=== PATIENT | male | born 1960 | race Hispanic/Latino ===

== ENCOUNTER 2020-04-10 20:47 | Emergency (ER) | payer BC, OTHER ==
--- NOTE | 2020-04-10 21:18 | EDM.PDOC ---
ED HPI GENERAL MEDICAL PROBLEM - General Chief Complaint: Abdominal Pain Stated Complaint: DIAHREA YESTERDAY/JUST DOESN'T FEEL GOOD Time Seen by Provider: 04/10/20 21:08 - History of Present Illness INITIAL COMMENTS - FREE TEXT/NARRATIVE: 59-year-old male presents the emergency room generally not feeling well. He had some loose stools yesterday and does not feel well today. He has some mild stomach upset but just is not himself. The patient usually drinks 1 or 2 glasses of tequila at night however over the last couple of days he drank 2 bottles. He denies vomiting may have some nausea. Denies specific pain anywhere just does not feel well. He is not coughing does not have any upper airway congestion has had a couple of loose stools last 1 yesterday. Patient denies ever trying to quit drinking in the past. Patient has colitis by history. It does not sound like this is ever been worked up however. He is never had it he colonoscopy. And he is never been told what type of colitis it is. Abdomen Pain Score (Numeric/FACES): 8 - Related Data Allergies Allergy/AdvReac Type Severity Reaction Status Date / Time Sitlpfv-Vch-Dyo Reductase Allergy Other Verified 04/10/20 21:43 Inhibitor Home Meds: Home Meds Aspirin [Aspirin EC] 1 tab PO DAILY 04/10/20 [History] Ondansetron [Zofran ODT] 4 mg PO Q6H PRN #5 tab.dis #2 Samples 04/10/20 [Rx] ED ROS GENERAL - Review of Systems Review Of Systems: See Below Constitutional: Reports: No Symptoms HEENT: Reports: No Symptoms Respiratory: Reports: No Symptoms Cardiovascular: Reports: No Symptoms GI/Abdominal: Reports: Diarrhea, Nausea, Other (No loss of taste or smell). Denies: Black Stool, Bloody Stool : Reports: No Symptoms Musculoskeletal: Reports: No Symptoms Skin: Reports: No Symptoms Neurological: Reports: No Symptoms ED EXAM, GI/ABD - Physical Exam Exam: See Below Exam Limited By: No Limitations General Appearance: Alert, No Apparent Distress Eyes: Bilateral: Normal Appearance Ears: Normal External Exam, Normal Canal, Hearing Grossly Normal, Normal TMs Nose: Normal Inspection, Normal Mucosa, No Blood Throat/Mouth: Normal Inspection, Normal Lips, Normal Gums, Normal Oropharynx, Normal Voice, No Airway Compromise Head: Atraumatic, Normocephalic Neck: Normal Inspection, Supple, Non-Tender, Full Range of Motion. No: Lymphadenopathy (L), Lymphadenopathy (R) Respiratory/Chest: No Respiratory Distress, Lungs Clear, Normal Breath Sounds Cardiovascular: Regular Rate, Rhythm, No Edema, No Murmur GI/Abdominal Exam: Normal Bowel Sounds, Soft, Tender (Mild left lower quadrant tenderness.) Back Exam: Normal Inspection. No: CVA Tenderness (L), CVA Tenderness (R) Extremities: Normal Inspection, No Pedal Edema Neurological: Alert, Oriented, Normal Cognition Course - Vital Signs Last Recorded V/S: Last Vital Signs Temp 37.0 C 04/10/20 21: Pulse 127 H 04/10/20 21:01 Resp 16 04/10/20 21: BP 188/90 H 04/10/20 21:01 Pulse Ox 94 L 04/10/20 21:01 - Orders/Labs/Meds Labs: Laboratory Tests 04/10/20 04/10/20 04/10/20 Range/Units 21:15 21:15 21:49 WBC 6.67 (4.23-9.07) K/mm3 RBC 5.29 (4.63-6.08) M/mm3 Hgb 16.4 (13.7-17.5) gm/dl Hct 46.3 (40.1-51.0) % MCV 87.5 (79.0-92.2) fl MCH 31.0 (25.7-32.2) pg MCHC 35.4 (32.2-35.5) g/dl RDW Std Deviation 44.2 H (35.1-43.9) fL Plt Count 381 H (163-337) K/mm3 MPV 9.7 (9.4-12.3) fl Neut % (Auto) 67.7 (34.0-67.9) % Lymph % (Auto) 22.2 (21.8-53.1) % [place] % (Auto) 9.1 (5.3-12.2) % Eos % (Auto) 0.6 L (0.8-7.0) Baso % (Auto) 0.3 (0.1-1.2) % Neut # (Auto) 4.51 (1.78-5.38) K/mm3 Lymph # (Auto) 1.48 (1.32-3.57) K/mm3 [place] # (Auto) 0.61 (0.30-0.82) K/mm3 Eos # (Auto) 0.04 (0.04-0.54) K/mm3 Baso # (Auto) 0.02 (0.01-0.08) K/mm3 Sodium 138 (136-145) mEq/L Potassium 3.4 L (3.5-5.1) mEq/L Chloride 100 (98-107) mEq/L Carbon Dioxide 20 L (21-32) mEq/L Anion Gap 21.4 H (5-15) BUN 12 (7-18) mg/dL Creatinine 1.2 (0.7-1.3) mg/dL Est Cr Clr Drug Dosing 59.07 mL/min Estimated GFR (MDRD) > 60 (>60) mL/min BUN/Creatinine Ratio 10.0 L (14-18) Glucose 109 H (74-106) mg/dL Calcium 8.9 (8.5-10.1) mg/dL Total Bilirubin 0.9 (0.2-1.0) mg/dL GGT 92 H (15-85) U/L AST 33 (15-37) U/L ALT 38 (16-63) U/L Alkaline Phosphatase 68 (46-116) U/L Total Protein 7.8 (6.4-8.2) g/dl Albumin 4.2 (3.4-5.0) g/dl Globulin 3.6 gm/dL Albumin/Globulin Ratio 1.2 (1-2) Urine Color Yellow (Yellow) Urine Appearance Clear (Clear) Urine pH 6.5 (5.0-8.0) Ur Specific [place] > or = 1.030 (1.005-1.030) Urine Protein Trace H (Negative) Urine Glucose (UA) Negative (Negative) Urine Ketones Negative (Negative) Urine Occult Blood Trace-lysed H (Negative) Urine Nitrite Negative (Negative) Urine Bilirubin Negative (Negative) Urine Urobilinogen 0.2 (0.2-1.0) Ur Leukocyte Esterase Negative (Negative) Urine RBC 0-5 (0-5) /hpf Urine WBC 0-5 (0-5) /hpf Ur Squamous Epith Cells 0-5 (0-5) /hpf Urine Bacteria Few (FEW) /hpf Urine Mucus Moderate H (FEW) /hpf Ethyl Alcohol 0.05 (0.00) gm% Meds: Medications Discontinued Medications Generic Name Dose Route Start Last Admin Trade Name Ria PRN Reason Stop Dose Admin Lactated Ringer's 1,000 mls @ 999 mls/hr 04/10/20 21:33 04/10/20 21:43 Ringers, Lactated IV 04/10/20 22:33 999 mls/hr .BOLUS ONE Administration Ondansetron HCl 4 mg 04/10/20 21:33 04/10/20 21:43 Zofran IVPUSH 04/10/20 21:34 4 mg ONETIME ONE Administration - Re-Assessments/Exams Free Text/Narrative Re-Assessment/Exam: 04/10/20 22:48 Patient is feeling much better and would like to go home. We will give him 40 mEq of oral potassium before he leaves. We will give him some Zofran as an outpatient and I have advised him strongly to quit drinking. Departure - Departure Time of Disposition: 22:50 Disposition: Home, Self-Care 01 Clinical Impression: Alcoholism /alcohol abuse - Discharge Information Referrals: PCP,None [Primary Care Provider] - Forms: ED Department Discharge Additional Instructions: Return to the emergency room with any questions problems or worsening symptoms. Clear liquid diet for the next 24 hours then slowly advance as tolerated. Quit drinking! You have been given a prescription for Zofran this will help with the nausea use as needed. direct support worker some magnesium oxide 400 mg tablets. Take 1 daily. It will help. Sepsis Event Note (ED) - Evaluation Sepsis Screening Result: No Definite Risk - Focused Exam Vital Signs: Vital Signs Temp Pulse Resp BP Pulse Ox 04/10/20 21:01 37.0 C 127 H 16 188/90 H 94 L
[2020-04-10] MEDS ORDERED: Ondansetron 4 MG/2 ML SDV IVPUSH ONE (21:33)
[2020-04-10] MEDS ORDERED: Lactated Ringers 1,000 ML IV ONE (21:33)
[2020-04-10] MEDS ORDERED: Ondansetron 4 MG Tab.DIS PO ONE (22:49)
[2020-04-10] MEDS ORDERED: Potassium Chloride 20 MEQ Tab.ER PO ONE (22:49)
== END 2020-04-10 23:05 | disposition home or self-care (01) ==
LOC: JD.ED 20:47
DX: F10.20 Alcohol dependence, uncomplicated (principal); Y90.2 Blood alcohol level of 40-59 mg/100 ml; Z88.8 Allergy status to other drugs, medicaments and biological substances; Z79.82 Long term (current) use of aspirin
CPT/HCPCS: 36415; 80053; 80307; 81001; 82977; 85025; 96374; 99284; A9270; J2405; J7120; 99283

== ENCOUNTER 2021-05-20 11:59 | Emergency (ER) | payer OTHER ==
[2021-05-20] MEDS ORDERED: Sodium Chloride 0.9% 10 ML Syringe FLUSH PRN (12:50)
--- NOTE | 2021-05-20 13:19 | CT ---
Head CT Technique: Multiple axial sections through the brain were obtained. Intravenous contrast was not utilized. Reconstructed coronal and sagittal images were obtained. Comparison: No prior intracranial imaging is available. Findings: Ventricles along with basal cisterns and sulci over the convexities are slightly prominent. No abnormal parenchymal densities are seen. No evidence of intracranial hemorrhage is seen. No midline shift or mass-effect is seen. Bone window settings were reviewed. No acute osseous abnormality is seen. Visualized mastoid sinuses and paranasal sinuses show nothing acute. Impression: 1. Noncontrast head CT study shows nothing acute. Diagnostic code #2
--- NOTE | 2021-05-20 15:28 | MR ---
MRI brain Technique: T1 sagittal; T2, T2 FLAIR, T1 and diffusion axial; T1 FLAIR coronal images were obtained. Comparison: Prior head CT study performed earlier on the same day (12:49 PM). Findings: Ventricles along with basal cisterns and sulci over the convexities are slightly prominent. There are no abnormal diffusion areas being seen. No abnormal signal is seen within the brain parenchyma. No midline shift or mass-effect is seen. Normal signal void is seen within the major cerebral arteries within the skull base. Impression: 1. Nothing acute is seen on MRI study of the brain. Diagnostic code #1
--- NOTE | 2021-05-20 15:29 | EDM.PDOC ---
ED HPI GENERAL MEDICAL PROBLEM - General Chief Complaint: General Stated Complaint: [facility] Time Seen by Provider: 05/20/21 12:25 Source of Information: Reports: Patient, EMS History Limitations: Reports: Language Barrier - History of Present Illness INITIAL COMMENTS - FREE TEXT/NARRATIVE: The patient presents by [facility] for amnesia and not feeling well. He was at work today and his coworkers say he was using a chain saw. He stopped it and set it down. They asked him what was wrong and he said he does not feel right. He then could not remember the day. His last time known well was 12pm. He speaks very little [place]. I got a product marketing manager and she helped me communicate. He has no headache, fever, chills, cough, chest pain, shortness of breath, abdominal pain, nausea, vomiting, numbness or weakness. He has never had anything like this before. He knew who he was and kne he was in a hospital but not sure which one. He did not know the day or month. He has no medical problems and he is on no medications. Onset: Sudden Duration: Hour(s): (last time known well was 12pm) Severity: Moderate Improves with: Reports: None Worsens with: Reports: None Associated Symptoms: Reports: No Other Symptoms - Related Data Allergies Allergy/AdvReac Type Severity Reaction Status Date / Time Femwwrr-HPS-SvN Reductase Allergy Other Verified 05/20/21 12:32 Inhibitor [Qmkowxu-Zfx-Lva Reductase Inhibitor] Home Meds: Home Meds Tamsulosin [Flomax] 05/20/21 [History] atorvaSTATin [Lipitor] 05/20/21 [History] Past Medical History - Past Health History Medical/Surgical History: Denies Medical/Surgical History Cardiovascular History: Reports: High Cholesterol Genitourinary History: Reports: Prostate Disorder Social & Family History - Tobacco Use Tobacco Use Status *Q: Unknown Ever Used Tobacco - Caffeine Use Caffeine Use: Reports: Coffee ED ROS GENERAL - Review of Systems Review Of Systems: See Below Constitutional: Reports: No Symptoms HEENT: Reports: No Symptoms Respiratory: Reports: No Symptoms Cardiovascular: Reports: No Symptoms Endocrine: Reports: No Symptoms GI/Abdominal: Reports: No Symptoms : Reports: No Symptoms Musculoskeletal: Reports: No Symptoms Skin: Reports: No Symptoms Neurological: Reports: Other (amnesia) ED EXAM, GENERAL - Physical Exam Exam: See Below Exam Limited By: No Limitations General Appearance: Alert, No Apparent Distress Ears: Normal External Exam Nose: Normal Inspection Head: Atraumatic, Normocephalic Neck: Normal Inspection Respiratory/Chest: No Respiratory Distress, Lungs Clear, Normal Breath Sounds Cardiovascular: Regular Rate, Rhythm, No Edema, No Murmur GI/Abdominal: Soft, Non-Tender, No Organomegaly, No Mass Back Exam: Normal Inspection Extremities: Normal Inspection Neurological: Alert, Oriented, No Motor/Sensory Deficits #1 Interpretation EKG Date: 05/20/21 Time: 12:32 Rhythm: NSR Rate (Beats/Min): 95 [place]: LAD-Left [place] Deviation P-Wave: Present QRS: Normal ST-T: Normal QT: Normal Course - Vital Signs Last Recorded V/S: Last Vital Signs Temp 98.0 F 05/20/21 12:24 Pulse 104 H 05/20/21 12:24 Resp 18 05/20/21 12:24 BP 153/82 H 05/20/21 12:24 Pulse Ox 96 05/20/21 12:24 - Orders/Labs/Meds Orders: Active Orders 24 hr Category Date Time Status Cardiac Monitoring [RC] . DIRECTED Care 05/20/21 12:50 Active Peripheral IV Care [RC] . DIRECTED Care 05/20/21 12:51 Active Sodium Chloride 0.9% [Saline Flush] Med 05/20/21 12:50 Active 10 ml FLUSH ASDIRECTED PRN Peripheral IV Insertion Adult [OM.PC] Stat Oth 05/20/21 12:50 Ordered EKG 12 Lead [EK] Stat Ther 05/20/21 12:33 Ordered Medication Orders Sodium Chloride (Sodium Chloride 0.9% 10 Ml Syringe) 10 ml FLUSH ASDIRECTED PRN PRN Reason: Keep Vein Open Last Admin: 05/20/21 12:59 Dose: 10 ml Documented by: MICHAEL Labs: Laboratory Tests 05/20/21 05/20/21 05/20/21 Range/Units 12:41 12:43 12:43 WBC 9.73 H (4.23-9.07) K/mm3 RBC 4.97 (4.63-6.08) M/mm3 Hgb 14.9 D (13.7-17.5) gm/dl Hct 44.1 (40.1-51.0) % MCV 88.7 (79.0-92.2) fl MCH 30.0 (25.7-32.2) pg MCHC 33.8 (32.2-35.5) g/dl RDW Std Deviation 48.2 H (35.1-43.9) fL Plt Count 278 D (163-337) K/mm3 MPV 9.9 (9.4-12.3) fl Neut % (Auto) 72.5 H (34.0-67.9) % Lymph % (Auto) 19.6 L (21.8-53.1) % [place] % (Auto) 6.9 (5.3-12.2) % Eos % (Auto) 0.7 L (0.8-7.0) Baso % (Auto) 0.1 (0.1-1.2) % Neut # (Auto) 7.05 H (1.78-5.38) K/mm3 Lymph # (Auto) 1.91 (1.32-3.57) K/mm3 [place] # (Auto) 0.67 (0.30-0.82) K/mm3 Eos # (Auto) 0.07 (0.04-0.54) K/mm3 Baso # (Auto) 0.01 (0.01-0.08) K/mm3 PT (9.7-12.0) SECONDS INR APTT (21.7-31.4) SECONDS D-Dimer, Quantitative (0.19-0.50) mg/L Sodium 142 (136-145) mEq/L Potassium 3.5 (3.5-5.1) mEq/L Chloride 106 (98-107) mEq/L Carbon Dioxide 24 (21-32) mEq/L Anion Gap 15.5 H (5-15) BUN 17 (7-18) mg/dL Creatinine 1.1 (0.7-1.3) mg/dL Est Cr Clr Drug Dosing TNP Estimated GFR (MDRD) > 60 (>60) mL/min BUN/Creatinine Ratio 15.5 (14-18) Glucose 107 H (70-99) mg/dL POC Glucose 102 H (70-99) mg/dL Calcium 8.7 (8.5-10.1) mg/dL Magnesium 1.9 (1.8-2.4) mg/dL Total Bilirubin 0.5 (0.2-1.0) mg/dL AST 15 (15-37) U/L ALT 40 (16-63) U/L Alkaline Phosphatase 55 (46-116) U/L Troponin I < 0.017 (0.00-0.056) ng/mL C-Reactive Protein <0.2 (<1.0) mg/dL Total Protein 7.2 (6.4-8.2) g/dl Albumin 3.7 (3.4-5.0) g/dl Globulin 3.5 gm/dL Albumin/Globulin Ratio 1.1 (1-2) Urine Color (Yellow) Urine Appearance (Clear) Urine pH (5.0-8.0) Ur Specific [place] (1.005-1.030) Urine Protein (Negative) Urine Glucose (UA) (Negative) Urine Ketones (Negative) Urine Occult Blood (Negative) Urine Nitrite (Negative) Urine Bilirubin (Negative) Urine Urobilinogen (0.2-1.0) Ur Leukocyte Esterase (Negative) Urine RBC (0-5) /hpf Urine WBC (0-5) /hpf Ur Epithelial Cells (0-5) /hpf Urine Bacteria (FEW) /hpf Urine Mucus (FEW) /hpf Urine Opiates Screen (EOQHBJ=914) Ur Buprenorphine Scrn (CUTOFF=10) Ur Oxycodone Screen (HWW7UD=195) Urine Methadone Screen (AFM7CP=717) Ur Propoxyphene Screen (FXZOGC=427) Ur Barbiturates Screen (ROZQFO=573) Ur Tricyclics Screen (ETPATU=662) Ur Phencyclidine Scrn (CUTOFF=25) Ur Amphetamine Screen (OLVTVW=650) U Methamphetamines Scrn (OSLKTG=901) U Benzodiazepines Scrn (BYIBLN=898) U Cocaine Metab Screen (GTQWDF=948) U Marijuana (THC) Screen (CUTOFF=50) Ethyl Alcohol 0.00 (0.00) gm% SARS-CoV-2 RNA (DELFINA) (NEGATIVE) 05/20/21 05/20/21 05/20/21 Range/Units 12:57 12:57 13:14 WBC (4.23-9.07) K/mm3 RBC (4.63-6.08) M/mm3 Hgb (13.7-17.5) gm/dl Hct (40.1-51.0) % MCV (79.0-92.2) fl MCH (25.7-32.2) pg MCHC (32.2-35.5) g/dl RDW Std Deviation (35.1-43.9) fL Plt Count (163-337) K/mm3 MPV (9.4-12.3) fl Neut % (Auto) (34.0-67.9) % Lymph % (Auto) (21.8-53.1) % [place] % (Auto) (5.3-12.2) % Eos % (Auto) (0.8-7.0) Baso % (Auto) (0.1-1.2) % Neut # (Auto) (1.78-5.38) K/mm3 Lymph # (Auto) (1.32-3.57) K/mm3 [place] # (Auto) (0.30-0.82) K/mm3 Eos # (Auto) (0.04-0.54) K/mm3 Baso # (Auto) (0.01-0.08) K/mm3 PT (9.7-12.0) SECONDS INR APTT (21.7-31.4) SECONDS D-Dimer, Quantitative (0.19-0.50) mg/L Sodium (136-145) mEq/L Potassium (3.5-5.1) mEq/L Chloride (98-107) mEq/L Carbon Dioxide (21-32) mEq/L Anion Gap (5-15) BUN (7-18) mg/dL Creatinine (0.7-1.3) mg/dL Est Cr Clr Drug Dosing Estimated GFR (MDRD) (>60) mL/min BUN/Creatinine Ratio (14-18) Glucose (70-99) mg/dL POC Glucose (70-99) mg/dL Calcium (8.5-10.1) mg/dL Magnesium (1.8-2.4) mg/dL Total Bilirubin (0.2-1.0) mg/dL AST (15-37) U/L ALT (16-63) U/L Alkaline Phosphatase (46-116) U/L Troponin I (0.00-0.056) ng/mL C-Reactive Protein (<1.0) mg/dL Total Protein (6.4-8.2) g/dl Albumin (3.4-5.0) g/dl Globulin gm/dL Albumin/Globulin Ratio (1-2) Urine Color Light yellow (Yellow) Urine Appearance Clear (Clear) Urine pH 6.5 (5.0-8.0) Ur Specific [place] 1.010 (1.005-1.030) Urine Protein Negative (Negative) Urine Glucose (UA) Negative (Negative) Urine Ketones Negative (Negative) Urine Occult Blood Negative (Negative) Urine Nitrite Negative (Negative) Urine Bilirubin Negative (Negative) Urine Urobilinogen 0.2 (0.2-1.0) Ur Leukocyte Esterase Negative (Negative) Urine RBC 0-5 (0-5) /hpf Urine WBC 0-5 (0-5) /hpf Ur Epithelial Cells 0-5 (0-5) /hpf Urine Bacteria Not seen (FEW) /hpf Urine Mucus Not seen (FEW) /hpf Urine Opiates Screen Negative (TGPYTW=378) Ur Buprenorphine Scrn Negative (CUTOFF=10) Ur Oxycodone Screen Negative (VFZ6WX=233) Urine Methadone Screen Negative (DNO6SV=776) Ur Propoxyphene Screen Negative (LZANCZ=812) Ur Barbiturates Screen Negative (KQULVL=070) Ur Tricyclics Screen Negative (NFFEME=128) Ur Phencyclidine Scrn Negative (CUTOFF=25) Ur Amphetamine Screen Negative (KUOMLP=578) U Methamphetamines Scrn Negative (JKUHDX=606) U Benzodiazepines Scrn Negative (VZFGHM=383) U Cocaine Metab Screen Negative (ZNFDCJ=102) U Marijuana (THC) Screen Negative (CUTOFF=50) Ethyl Alcohol (0.00) gm% SARS-CoV-2 RNA (DELFINA) Negative (NEGATIVE) 05/20/21 Range/Units 13:19 WBC (4.23-9.07) K/mm3 RBC (4.63-6.08) M/mm3 Hgb (13.7-17.5) gm/dl Hct (40.1-51.0) % MCV (79.0-92.2) fl MCH (25.7-32.2) pg MCHC (32.2-35.5) g/dl RDW Std Deviation (35.1-43.9) fL Plt Count (163-337) K/mm3 MPV (9.4-12.3) fl Neut % (Auto) (34.0-67.9) % Lymph % (Auto) (21.8-53.1) % [place] % (Auto) (5.3-12.2) % Eos % (Auto) (0.8-7.0) Baso % (Auto) (0.1-1.2) % Neut # (Auto) (1.78-5.38) K/mm3 Lymph # (Auto) (1.32-3.57) K/mm3 [place] # (Auto) (0.30-0.82) K/mm3 Eos # (Auto) (0.04-0.54) K/mm3 Baso # (Auto) (0.01-0.08) K/mm3 PT 10.2 (9.7-12.0) SECONDS INR < 0.93 APTT 24.8 (21.7-31.4) SECONDS D-Dimer, Quantitative 0.21 (0.19-0.50) mg/L Sodium (136-145) mEq/L Potassium (3.5-5.1) mEq/L Chloride (98-107) mEq/L Carbon Dioxide (21-32) mEq/L Anion Gap (5-15) BUN (7-18) mg/dL Creatinine (0.7-1.3) mg/dL Est Cr Clr Drug Dosing Estimated GFR (MDRD) (>60) mL/min BUN/Creatinine Ratio (14-18) Glucose (70-99) mg/dL POC Glucose (70-99) mg/dL Calcium (8.5-10.1) mg/dL Magnesium (1.8-2.4) mg/dL Total Bilirubin (0.2-1.0) mg/dL AST (15-37) U/L ALT (16-63) U/L Alkaline Phosphatase (46-116) U/L Troponin I (0.00-0.056) ng/mL C-Reactive Protein (<1.0) mg/dL Total Protein (6.4-8.2) g/dl Albumin (3.4-5.0) g/dl Globulin gm/dL Albumin/Globulin Ratio (1-2) Urine Color (Yellow) Urine Appearance (Clear) Urine pH (5.0-8.0) Ur Specific [place] (1.005-1.030) Urine Protein (Negative) Urine Glucose (UA) (Negative) Urine Ketones (Negative) Urine Occult Blood (Negative) Urine Nitrite (Negative) Urine Bilirubin (Negative) Urine Urobilinogen (0.2-1.0) Ur Leukocyte Esterase (Negative) Urine RBC (0-5) /hpf Urine WBC (0-5) /hpf Ur Epithelial Cells (0-5) /hpf Urine Bacteria (FEW) /hpf Urine Mucus (FEW) /hpf Urine Opiates Screen (YRBNRH=005) Ur Buprenorphine Scrn (CUTOFF=10) Ur Oxycodone Screen (NQU9VU=282) Urine Methadone Screen (FFM2TC=859) Ur Propoxyphene Screen (FDVUJA=580) Ur Barbiturates Screen (GGUCDD=699) Ur Tricyclics Screen (VHHQAQ=652) Ur Phencyclidine Scrn (CUTOFF=25) Ur Amphetamine Screen (LAPWTE=072) U Methamphetamines Scrn (YEWSRF=008) U Benzodiazepines Scrn (PXGKOO=593) U Cocaine Metab Screen (IUEQSY=105) U Marijuana (THC) Screen (CUTOFF=50) Ethyl Alcohol (0.00) gm% SARS-CoV-2 RNA (DELFINA) (NEGATIVE) Meds: Medications Generic Name Dose Route Start Last Admin Trade Name Freq PRN Reason Stop Dose Admin Sodium Chloride 10 ml 05/20/21 12:50 05/20/21 12:59 Sodium Chloride 0.9% 10 Ml Syringe FLUSH 10 ml ASDIRECTED PRN Administration Keep Vein Open - Re-Assessments/Exams Free Text/Narrative Re-Assessment/Exam: 05/20/21 15:31 I ordered an IV saline lock, EKG, CT of his head and labs. His EKG shows a NSR with no acute changes. His CT shows noncontrast head CT study shows nothing acute. His WBC was slightly elevated at 9.73. His D-dimer, PT and PTT were normal. His CMP looks good. His troponin was negative. His CRP was normal. His UA shows no UTI. His urine drug screen was negative. His ETOH was 0. He was COVID negative. I was able to get him in for an MRI and MRA of his brain. I am waiting for the results now. 05/20/21 16:06 The MRA of his brain shows right posterior cerebral artery arises anteriorly which is a normal variant. Arteries seen on this exam show no focal stenosis, occlusion or findings of aneurysm. The MRI of his brain shows nothing acute. He is doing much better. He is remembering more. He did not have a stroke. He has transient global amnesia. I will get him on an aspirin and have him follow up with his provider. He is seeing his doctor on the 29 of May. Departure - Departure Time of Disposition: 16:10 Disposition: Home, Self-Care 01 Condition: Good Clinical Impression: Transient global amnesia - Discharge Information *PRESCRIPTION DRUG MONITORING PROGRAM REVIEWED*: Not Applicable *COPY OF PRESCRIPTION DRUG MONITORING REPORT IN PATIENT CHARLY: Not Applicable Referrals: PCP,None [Primary Care Provider] - Forms: ED Department Discharge Additional Instructions: Follow up with your provider as scheduled. Take an aspirin daily. Please return if you are worse. Sepsis Event Note (ED) - Evaluation Sepsis Screening Result: No Definite Risk - Focused Exam Vital Signs: Vital Signs Temp Pulse Resp BP Pulse Ox 05/20/21 12:24 98.0 F 104 H 18 153/82 H 96 - My Orders Last 24 Hours: My Active Orders 05/20/21 12:33 EKG 12 Lead [EK] Stat 05/20/21 12:50 Cardiac Monitoring [RC] . DIRECTED Sodium Chloride 0.9% [Saline Flush] 10 ml FLUSH ASDIRECTED PRN Peripheral IV Insertion Adult [OM.PC] Stat 05/20/21 12:51 Peripheral IV Care [RC] . DIRECTED - Assessment/Plan Last 24 Hours: My Active Orders 05/20/21 12:33 EKG 12 Lead [EK] Stat 05/20/21 12:50 Cardiac Monitoring [RC] . DIRECTED Sodium Chloride 0.9% [Saline Flush] 10 ml FLUSH ASDIRECTED PRN Peripheral IV Insertion Adult [OM.PC] Stat 05/20/21 12:51 Peripheral IV Care [RC] . DIRECTED
--- NOTE | 2021-05-20 15:36 | MR ---
MRI angiogram of the brain Technique: Multiple axial sections were obtained during MR angiogram study centered to the [place] of [place]. Intravenous contrast was not utilized. Multiple MIP images were obtained in multiple projections. Comparison: No prior MR angiogram study is available. Findings: Both distal vertebral arteries are seen into the basilar artery. Both distal internal carotid arteries are seen. Normal flow into both middle cerebral arteries is noted. Right posterior cerebral artery arises from the anterior cerebral artery territory. There is normal flow into the anterior cerebral arteries. There is no focal stenosis or occlusion being seen within the visualized arteries. No aneurysm is seen. Impression: 1. Right posterior cerebral artery arises anteriorly which is a normal variant. 2. Arteries seen on this exam show no focal stenosis, occlusion or findings of aneurysm. Diagnostic code #2
== END 2021-05-20 17:21 | disposition home or self-care (01) ==
LOC: JD.ED 11:59
DX: G45.4 Transient global amnesia (principal); Z20.822 Contact with and (suspected) exposure to COVID-19; Z88.8 Allergy status to other drugs, medicaments and biological substances
CPT/HCPCS: 36415; 70450; 70450-26; 70544; 70544-26; 70551; 70551-26; 80053; 80306; 80307; 81001; 82947; 83735; 84484; 85025; 85379; 85610; 85730; 86140; 93005; 93010; 99284-25; 99285; U0002